=== PATIENT | male | born 1955 | race Caucasian/White ===

== ENCOUNTER 2016-08-01 09:32 | Emergency (ER) | payer OTHER ==
[2016-08-01 09:49] LABS: CLARITY CLOUDY (CLEAR); COLOR YELLOW (YELLOW); PROTEIN 3+ mg/dL (NEGATIVE); pH 6.5 (5.0-9.0)
[2016-08-01 09:50] LABS: BACTERIA 1+; BILIRUBIN NEGATIVE (NEGATIVE); BLOOD 3+ Ery/uL (NEGATIVE); GLUCOSE (U) TRACE mg/dL (NORMAL); KETONE (U) NEGATIVE (NEGATIVE); LEUKOCYTES 2+ Leu/uL (NEGATIVE); NITRITE POSITIVE (NEGATIVE); URINARY RBC 20-50
[2016-08-01 10:06] LABS: BASOPHIL 0.2 % (0-2); EOSINOPHIL 0.1 % (0-5); HCT 41.1 % (42.0-52.0); HGB 13.6 g/dl (13.2-18.0); LYMPHOCYTE 4.4 % (15-48); MCH 28.3 pg (25.0-31.0); MCHC 33.1 g/dL (32.0-36.0); MCV 85.4 fL (78.0-100.0); MONOCYTE 12.2 % (0-12); NEUTROPHIL 83.1 % (41-80); PLT 239 K/uL (150-400); RBC 4.81 M/uL (4.70-6.00); RDW 14.4 % (11.5-14.0); WBC 18.4 K/uL (4.0-10.5)
== END 2016-08-01 12:36 | disposition home or self-care (01) ==
LOC: FER 09:32
PROVIDERS: Emergency Medicine
DX: N30.01 Acute cystitis with hematuria (principal); I10 Essential (primary) hypertension; Z88.0 Allergy status to penicillin; Z79.82 Long term (current) use of aspirin; Z79.899 Other long term (current) drug therapy; Z87.891 Personal history of nicotine dependence
CPT/HCPCS: 36415; 80048; 81001; 85025